=== PATIENT | male | born 1990 | race Caucasian/White ===

== ENCOUNTER 2024-01-03 10:38 | Emergency (ER) | payer OTHER ==
[~2024-01-03] VITALS: Ht 180.3 cm; Wt 77.1 kg
[2024-01-03] MEDS: IV NORMAL SALINE 1000 ML BAG IV ONE (11:30)
[2024-01-03] MEDS ORDERED: DEXAMETHASONE SOD PHOSPHATE 10 MG INJ ONE (11:31)
[2024-01-03] MEDS: DEXAMETHASONE SOD PHOSPHATE 4 MG INJ IV ONE (11:34)
[2024-01-03 11:55] LABS: BASOPHILS % (AUTO) 0.9 % (0.0-2.0); HEMATOCRIT 40.8 % (36.7-47.1); HEMOGLOBIN 13.7 g/dL (12.5-16.3); LYMPHOCYTES # (AUTO) 0.9 K/uL (0.8-4.8); LYMPHOCYTES % (AUTO) 37.1 % (20.5-51.5); MEAN CORPUSCULAR HEMOGLOBIN 27.5 uug (23.8-33.4); MEAN CORPUSCULAR HGB CONC 34 g/dL (32.5-36.3); MEAN CORPUSCULAR VOLUME 82.2 fL (73.0-96.2); MONOCYTES # (AUTO) 0.3 K/uL (0.1-1.30); MONOCYTES % (AUTO) 13.7 % (0.0-11.0); NEUTROPHILS # (AUTO) 1.1 K/uL (1.8-8.9); NEUTROPHILS % (AUTO) 47.3 % (38.5-71.5); PLATELET COUNT (AUTO) 133 K/uL (152-348); RED BLOOD CELL COUNT(AUTO) 4.97 MIL/uL (4.06-5.63); WHITE BLOOD COUNT (AUTO) 2.4 K/uL (3.6-10.2)
[2024-01-03 12:11] LABS: ALANINE AMINOTRANSFERASE 28 U/L (16-63); ALBUMIN 3.7 g/dL (3.4-5.0); ALKALINE PHOSPHATASE 66 U/L (50-136); ASPARTATE AMINOTRANSFERASE 17 U/L (15-37); BILIRUBIN,DIRECT 0.1 mg/dL (0.0-0.2); BILIRUBIN,TOTAL 0.5 mg/dL (0.2-1.0); CALCIUM 8.6 mg/dL (8.5-10.1); CARBON DIOXIDE 24 mmol/L (21-32); CHLORIDE 104 mmol/L (98-107); CREATININE 0.9 mg/dL (0.6-1.3); GLUCOSE 96 mg/dL (74-106); SODIUM SERUM 140 mmol/L (136-145); UREA NITROGEN, BLOOD 16 mg/dL (7-18)
[2024-01-03 12:13] LABS: DIFFERENTIAL COMMENT 1
[2024-01-03 13:30] VITALS: BP 121/74; O2SAT 99
== END 2024-01-03 13:41 | disposition home or self-care (01) ==
LOC: ER 10:41
DX: B34.9 Viral infection, unspecified (principal); E86.0 Dehydration
CPT/HCPCS: 99283; 96374; 96361; 80076; 80048; 85025; 84145; 87040 ×2; 84484; 36415; 83605; J1100; J7040 ×2; A4606; A4663